=== PATIENT | female | born 1995 | race American Indian/Alaskan Native ===

== ENCOUNTER 2021-12-25 21:03 | Outpatient (CLI) | payer OTHER, MEDICAID ==
[2021-12-25 22:40] VITALS: BP 96/52
[2021-12-25 22:40] LABS: Bacteria,Urine 1+ /HPF (Negative); Bilirubin,Urine NEG (Negative); Blood,Urine NEG (Negative); Color,Urine Yellow (Yellow); Mucus,Urine FEW /HPF; Protein,Urine <15 mg/dL mg/dL (Negative); Urobilinogen,Urine < 2.0 mg/dL (<2.0); WBC,Urine < 1.0 /HPF (0.0-6.0)
[2021-12-25 22:42] LABS: RBC,Urine < 1.0 /HPF (0.0-6.0)
== END 2021-12-25 23:01 | disposition home or self-care (01) ==
LOC: TRG 21:03 → APU 21:04 → TRG 23:01
PROVIDERS: ATTEND Obstetrics & Gynecology
DX: O36.8130 Decreased fetal movements, third trimester, not applicable or unspecified (principal); Z3A.29 29 weeks gestation of pregnancy
CPT/HCPCS: 81001

== ENCOUNTER 2022-03-03 14:11 | Outpatient (CLI) | payer OTHER, MEDICAID ==
[2022-03-03 17:24] LABS: Hematocrit 37.1 % (30.3-42.9); Hemoglobin 11.8 gm/dl (10.1-14.3); Mean Corpuscular HGB Conc 32 % (30-34); Mean Corpuscular Volume 78 fl (79-97); Platelet Count 285 K/mm3 (140-440); Red Blood Count 4.77 M/mm3 (3.65-5.03); Red Cell Distribution Width 17.3 % (13.2-15.2)
[2022-03-03 17:34] LABS: Mucus,Urine FEW /HPF; RBC,Urine < 1.0 /HPF (0.0-6.0); WBC,Urine < 1.0 /HPF (0.0-6.0)
[2022-03-03 17:37] LABS: Color,Urine Straw (Yellow); Creatinine,Urine 158.3 mg/dL (0.1-20.0); Protein/Creatinine Ratio,Urine 0.16
[2022-03-03 17:38] LABS: Bilirubin,Urine Negative (Negative); Blood,Urine Negative (Negative); Urobilinogen,Urine < 2.0 mg/dL (<2.0)
[2022-03-03 17:42] LABS: Uric Acid 5.1 mg/dL (3.5-7.6)
[2022-03-03 18:25] LABS: Alanine Aminotransferase < 5 units/L (7-56)
[2022-03-03 19:51] VITALS: BP 108/66
== END 2022-03-03 20:03 | disposition home or self-care (01) ==
LOC: TRG 14:11 → APU 14:17 → TRG 20:03
PROVIDERS: ATTEND Obstetrics & Gynecology
DX: O13.3 Gestational [pregnancy-induced] hypertension without significant proteinuria, third trimester (principal); Z3A.39 39 weeks gestation of pregnancy
CPT/HCPCS: 36415; 81001; 82565; 82570; 83615; 84156; 84450; 84460; 84550; 85027

== ENCOUNTER 2022-03-05 05:31 | Outpatient (CLI) | payer OTHER, MEDICAID ==
[2022-03-05] MEDS ORDERED: LACTATED RINGERS 1,000 ML ONE (06:20)
[2022-03-05 06:36] VITALS: BP 134/85
--- NOTE | 2022-03-05 09:25 | Ultrasound Report ---
ULTRASOUND OBSTETRIC LIMITED INDICATION / CLINICAL INFORMATION: presentation. TECHNIQUE: Transabdominal ultrasound imaging. COMPARISON: None available. FINDINGS: HEART RATE (beats per minute): 149 AMNIOTIC FLUID INDEX (cm) = not measured PRESENTATION: Cephalic. ADDITIONAL FINDINGS: None. IMPRESSION: Cephalic presentation Signer Name: Todd Gilmore Jr, MD Signed: 03/05/2022 9:21 AM Workstation Name: [id number]
== END 2022-03-05 09:38 | disposition home or self-care (01) ==
LOC: TRG 05:31 → APU 05:38 → TRG 09:38
PROVIDERS: ATTEND Obstetrics & Gynecology
DX: O62.9 Abnormality of forces of labor, unspecified (principal); O24.419 Gestational diabetes mellitus in pregnancy, unspecified control; Z3A.39 39 weeks gestation of pregnancy
CPT/HCPCS: 59025; 76815; Q0177; 96360

== ENCOUNTER 2022-03-06 03:57 | Inpatient (IN) | payer OTHER, MEDICAID ==
[2022-03-06] MEDS ORDERED: LACTATED RINGERS 1,000 ML ONE ×2 (06:00→15:48)
--- NOTE | 2022-03-06 06:07 | History and Physical Report ---
History of Present Illness Date of examination: 03/06/22 History of present illness: This patient presents to labor and delivery with complaints of leaking fluid and contractions. Patient's care has been complicated by morbid obesity, abnormal 1hour glucose tolerance test with failure to follow-up for definitive testing and a history of thyroid disease. Patient was scheduled for labor induction due to gestational diabetes today per perinatology recommendation. Initial evaluation by triage nurse did reveal a positive ROM test but nurse states with multiple nurses attempting been unable to feel the patient's cervix but the fetus not been engaged in the patient's pelvis. Patient been admitted for gestational diabetes, premature rupture membranes and possibly advance labor. OB Intake Ethnicity: Tenriism: NONE Occupation: Unemployed Menstrual History Regularity: regular Menses every: 28 days Duration: 7 EDC Confirmation: 03/06/2022 Past History : 2 Term Births: 0 Premature Births: 0 Living Children: 0 Para: 0 Mult. Births: 0 Prev : 0 Prev. attempt? 0 Aborta: 1 Elect. Ab: 1 Spont. 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 % Alcohol Use: no Drug Use: no Past Medical History Anesthesia Complications: negative Anemia: negative Autoimmune Disorder: negative Bleeding Disorder: negative Blood Transfusions: negative Breast Disease: negative Diabetes: negative Heart Disease: negative Hypertension: negative Hepatitis/Liver Disease: negative Kidney Disease/UTI: negative Neurologic/Epilepsy/Migraines: negative Phlebitis/Varicosities: negative Psychiatric: negative Pulmonary Disease/Asthma: negative Thyroid Disease: negative Hospitalizations: negative Surgery (Non-publicity manager): negative Abnormal PAP: negative FELIX Exposure: negative Infertility: negative Uterine Anomaly: negative Uterine Surgery (not C/S): negative Other Gynecologic Problems: negative Family Hx: adopted Social Hx: Patient is single Smoking History: Patient has never smoked. Infection History Hx of STD: none HIV Risk Eval: no Hepatitis B Risk Eval: low risk Personal hx. of genital herpes: no Rash, Viral, or Febrile illness since last LMP? yes Varicella/Chicken Pox Status: Immunized TB Risk: no Genetic History Congenital Heart Defect: Mom: no Dad: no Sweta Disease: Mom: no Dad: no Thalassemia Mom: no Dad: no Neural Tube Defect Mom: no Dad: no Down's Syndrome Mom: no Dad: no Danilo-Sachs Mom: no Dad: no Sickle Cell Disease/Trait Mom: no Dad: no Hemophilia Mom: no Dad: no Muscular Dystrophy Mom: no Dad: no Cystic Fibrosis Mom: no Dad: no Sauk Chorea Mom: no Dad: no Mental Retardation Mom: no Dad: no Fragile X Mom: no Dad: no Other Genetic/Chromosomal Disorder Mom: no Dad: no Child w/other defect Mom: no Dad: no Enviromental Exposures Enviromental Exposures Reviewed Xray Exposure: no Medication, drug, or alcohol use since LMP: no Chemical/Other Exposure: no Exposure to Cat Liter: no Hx of Parvovirus (Fifth Disease): no Occupational Exposure to Children: none Comments: unemployed Current Allergies (reviewed today): No known allergies Past History Past Medical History: other (See HPI) Past Surgical History: other (See HPI) 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) Family/Genetic History: other (See HPI) Social history: , full code, other (See HPI) - Obstetrical History Expected Date of Delivery: 03/06/22 Actual Gestation: 40 Week(s) 0 Day(s) : 2 Para: 0 Hx # Term Pregnancies: 0 Number of Pregnancies: 0 Spontaneous Abortions: 0 Induced : 1 Number of Living Children: 0 Medications and Allergies Allergies Allergy/AdvReac Type Severity Reaction Status Date / Time No Known Allergies Allergy Verified 03/05/22 06:21 Review of Systems All systems: negative (See HPI) - Vital Signs Vital signs: Vital Signs Temp 98.1 F 03/06/22 04:10 Temp Pulse Resp BP Pulse Ox 98.1 F 88 119/71 99 03/06/22 04:10 03/06/22 06:02 03/06/22 05:59 03/06/22 06:02 - Physical Exam Breasts: Positive: deferred Cardiovascular: Regular rate Lungs: Positive: Normal air movement Abdomen: Positive: normal appearance - Obstetrical FHR: category 1 Uterine Contraction Monitor Mode: External Uterine Contraction Pattern: Irregular Uterine Tone Measurement Phase: Resting Uterine Contraction Intensity: Moderate Results Result Diagrams: 03/06/22 05:50 Abnormal lab results 03/06/22 Range/Units 04:32 Membranes Rupture Positive A (Negative) All other labs normal. Assessment and Plan - Patient Problems (1) Premature rupture of membranes Current Visit: Yes Status: Acute Qualifiers: PROM onset of labor timing: onset of labor within 24 hours of rupture PROM gestational age: full term Qualified Code(s): O42.02 - Full-term premature rupture of membranes, onset of labor within 24 hours of rupture Plan to address problem: Patient will be admitted and examined by provider. Will follow normal labor and delivery protocol with the possibility either induction of labor or augmentation of labor if indicated. (2) 40 weeks gestation of Current Visit: Yes Status: Acute (3) BMI 40.0-44.9, adult Current Visit: Yes Status: Acute (4) Carrier of group B Streptococcus Current Visit: Yes Status: Acute Plan to address problem: We will give prophylactic antibiotics (5) Gestational diabetes Current Visit: Yes Status: Acute Qualifiers: Gestational diabetes mellitus control: diet-controlled Trimester: third trimester Qualified Code(s): O24.410 - Gestational diabetes mellitus in , diet controlled
[2022-03-06] MEDS ORDERED: CARBOPROST TROMETHAMINE 250 MCG/1 ML INJ IM PRN (06:13)
[2022-03-06] MEDS ORDERED: miSOPROStol 200 MCG TAB PR PRN (06:13)
[2022-03-06] MEDS ORDERED: METHYLERGONOVINE MALEATE 0.2 MG/ML VIAL IM PRN (06:13)
[2022-03-06] MEDS ORDERED: PROMETHAZINE 25 MG TAB PO PRN (06:13)
[2022-03-06] MEDS ORDERED: ACETAMINOPHEN 325 MG TAB PO PRN (06:13)
[2022-03-06] MEDS ORDERED: OXYTOCIN 10 UNIT/1 ML INJ IM PRN (06:13)
[2022-03-06] MEDS ORDERED: TERBUTALINE 1 MG/1 ML INJ SUB-Q PRN (06:13)
[2022-03-06] MEDS ORDERED: LOPERAMIDE 2 MG CAP PO PRN (06:13)
[2022-03-06] MEDS ORDERED: ePHEDrine SULFATE 50 MG/1 ML INJ IV PRN ×2 (06:13→07:30)
[2022-03-06] MEDS ORDERED: AMPICILLIN/NS 2 GM/100 ML 2 GM/100 ML BAG IV ONE (06:13)
[2022-03-06] MEDS ORDERED: BUTORPHANOL 2 MG/1 ML INJ IV PRN ×2 (06:13)
[2022-03-06] MEDS ORDERED: LIDOCAINE (2%) 20 MG/1 ML VIAL 20 ML MDV INFILTRATI ONE (06:13)
[2022-03-06] MEDS ORDERED: LACTATED RINGERS 1,000 ML IV SCH ×2 (06:15→13:15)
[2022-03-06 06:34] LABS: Hematocrit 37.1 % (30.3-42.9); Hemoglobin 11.7 gm/dl (10.1-14.3); Mean Corpuscular HGB Conc 32 % (30-34); Mean Corpuscular Volume 78 fl (79-97); Platelet Count 271 K/mm3 (140-440); Red Blood Count 4.75 M/mm3 (3.65-5.03); Red Cell Distribution Width 16.6 % (13.2-15.2)
[2022-03-06] MEDS ORDERED: OXYTOCIN DRIP 30 UNITS/500 ML BAG IV SCH ×3 (07:00→18:46)
--- NOTE | 2022-03-06 07:19 | Anesthesia Consultation ---
Anesthesia Consult and Med Hx Date of service: 03/06/22 - Airway Anesthetic Teeth Evaluation: Good ROM Head & Neck: Adequate Mental/Hyoid Distance: Adequate Mallampati Class: Class II Intubation Access Assessment: Probably Good - Pulmonary Exam CTA: Yes - Cardiac Exam Cardiac Exam: RRR - Pre-Operative Health Status ASA Pre-Surgery Classification: ASA2 Proposed Anesthetic Plan: Epidural - Pulmonary Hx Smoking: No Hx Asthma: No COPD: No Hx Sleep Apnea: No - Cardiovascular System Hx Hypertension: No Hx Coronary Artery Disease: No - Central Nervous System Hx Seizures: No CVA: No Hx Psychiatric Problems: No - Endocrine Hx Renal Disease: No Hx Liver Disease: No Hx Non-Insulin Dependent Diabetes: No Hx Hypothyroidism: No Hx Hyperthyroidism: Yes (No medications) - Hematic Hx Anemia: No Hx Sickle Cell Disease: No - Other Systems Hx Alcohol Use: No Hx Substance Use: No Hx Cancer: No Hx Obesity: Yes - Additional Comments Anesthesia Medical History Comments: no hx of anesthetic complications
--- NOTE | 2022-03-06 07:29 | Progress Note ---
Labor Epidural - Labor Epidural Start Time: 07:13 Stop Time: 07:25 Performed by:: CANDACE HODGES (with Mireille ARCE) Procedure: Patient is requesting epidural for labor pain. H&P and labs reviewed. Procedure explained, questions answered, consent obtained. Patient placed in sitting position with monitors applied. Timeout performed immediately before start of procedure. Prep/drape in usual sterile fashion. Skin localized 3 mL 1% lidocaine at L[3]-L[4] interspace. 17-gauge Touhy epidural needle advanced to [place] with saline at [8] cm. No blood/CSF noted via epidural needle [id number]. Epidural catheter advanced to [14] cm. Negative aspiration for blood and CSF via catheter, negative response to test dose 3 ml 1.5% lidocaine w/ Epi. Sterile dressing applied followed by tape reinforcement. Patient tolerated procedure well. No immediate complications noted.
[2022-03-06] MEDS ORDERED: NALOXONE 0.4 MG/1 ML INJ IV PRN ×2 (07:30→18:46)
--- NOTE | 2022-03-06 07:51 | Progress Note ---
Assessment and Plan 26y/o @ 40+0, presented in labor. complications uncontrolled GDM and hypothyroidism. SVE /-2 after epidural, forebag noted bulging - arom'd with ISE placement moderate mec. ISE placed d/t difficulty in tracing FHT. EFW ~8lbs+ by tavares. GBS +. Dr. Terry aware of patient's assessment - Patient Problems (1) 40 weeks gestation of Current Visit: Yes Status: Acute (2) BMI 40.0-44.9, adult Current Visit: Yes Status: Acute (3) Carrier of group B Streptococcus Current Visit: Yes Status: Acute (4) Gestational diabetes Current Visit: Yes Status: Acute Qualifiers: Gestational diabetes mellitus control: diet-controlled Trimester: third trimester Qualified Code(s): O24.410 - Gestational diabetes mellitus in , diet controlled Subjective - Subjective Date of service: 03/06/22 Principal diagnosis: IUP @ 40w0d: Labor, GDM, Hypothyroidism Patient reports: other (comfrotable s/p epidural) Objective - Vital Signs Vital Signs: Vital Signs - 12hr 03/06/22 03/06/22 03/06/22 04:10 04:14 05:59 Temperature 98.1 F Pulse Rate 99 H 92 H Respiratory Rate Blood Pressure 118/65 119/71 Blood Pressure [Right] O2 Sat by Pulse Oximetry O2 Sat by Pulse Oximetry [ Anterior Bilateral Throughout] 03/06/22 03/06/22 03/06/22 06:02 06:07 06:08 Temperature 98 F Pulse Rate 88 89 Respiratory 18 Rate Blood Pressure Blood Pressure 119/71 [Right] O2 Sat by Pulse 99 99 Oximetry O2 Sat by Pulse 99 Oximetry [ Anterior Bilateral Throughout] 03/06/22 03/06/22 03/06/22 06:12 06:17 06:22 Temperature Pulse Rate 111 H 80 95 H Respiratory Rate Blood Pressure Blood Pressure [Right] O2 Sat by Pulse 99 99 100 Oximetry O2 Sat by Pulse Oximetry [ Anterior Bilateral Throughout] 03/06/22 03/06/22 03/06/22 06:27 06:32 06:37 Temperature Pulse Rate 107 H 72 114 H Respiratory Rate Blood Pressure Blood Pressure [Right] O2 Sat by Pulse 99 97 99 Oximetry O2 Sat by Pulse Oximetry [ Anterior Bilateral Throughout] 03/06/22 03/06/2222 06:42 06:47 06:52 Temperature Pulse Rate 94 H 76 80 Respiratory Rate Blood Pressure Blood Pressure [Right] O2 Sat by Pulse 99 98 97 Oximetry O2 Sat by Pulse Oximetry [ Anterior Bilateral Throughout] 03/06/22 03/06/22 03/06/22 06:57 07:02 07:05 Temperature Pulse Rate 81 120 H 107 H Respiratory Rate Blood Pressure Blood Pressure [Right] O2 Sat by Pulse 99 100 93 Oximetry O2 Sat by Pulse Oximetry [ Anterior Bilateral Throughout] 03/06/22 03/06/22 03/06/22 07:07 07:12 07:17 Temperature Pulse Rate 97 H 114 H 101 H Respiratory Rate Blood Pressure Blood Pressure [Right] O2 Sat by Pulse 99 98 100 Oximetry O2 Sat by Pulse Oximetry [ Anterior Bilateral Throughout] 03/06/22 03/06/22 03/06/22 07:22 07:27 07:32 Temperature Pulse Rate 105 H 109 H 101 H Respiratory Rate Blood Pressure 117/69 Blood Pressure [Right] O2 Sat by Pulse 99 99 100 Oximetry O2 Sat by Pulse Oximetry [ Anterior Bilateral Throughout] 03/06/22 03/06/22 03/06/22 07:33 07:37 07:39 Temperature Pulse Rate 106 H 102 H 94 H Respiratory Rate Blood Pressure 121/75 108/70 Blood Pressure [Right] O2 Sat by Pulse 99 Oximetry O2 Sat by Pulse Oximetry [ Anterior Bilateral Throughout] 03/06/22 03/06/22 03/06/22 07:42 07:43 07:47 Temperature Pulse Rate 109 H 95 H 100 H Respiratory Rate Blood Pressure 121/59 Blood Pressure [Right] O2 Sat by Pulse 98 99 Oximetry O2 Sat by Pulse Oximetry [ Anterior Bilateral Throughout] - Exam Breasts: normal Cardiovascular: Regular rate Lungs: Normal air movement Abdomen: Present: normal appearance, soft Vulva: both: normal Uterus: Present: normal, fundal height above umbilicus FHR: auscultation normal, category 1 Uterine Contraction Monitor Mode: External Cervical Dilatation: 8 (AROM forebag Moderate mec) Cervical Effacement Percentage: 90 station: -2 Uterine Contraction Frequency (min): 3-5 Uterine Contraction Duration: 80 Uterine Contraction Pattern: Regular Uterine Tone Measurement Phase: Contraction Uterine Contraction Intensity: Strong/Firm Extremities: edema Deep Tendon Reflex Grade: Normal +2 - Labs Labs: Abnormal Labs 03/06/22 03/06/22 03/06/22 04:32 05:50 06:44 MCV 78 L MCH 25 L RDW 16.6 H POC Glucose 114 H Membranes Rupture Positive A Laboratory Results - last 24 hr 03/06/22 03/06/22 03/06/22 04:32 05:50 05:50 WBC 10.0 RBC 4.75 Hgb 11.7 Hct 37.1 MCV 78 L MCH 25 L MCHC 32 RDW 16.6 H Plt Count 271 POC Glucose Membranes Rupture Positive A Antibody Screen Negative 03/06/22 06:44 WBC RBC Hgb Hct MCV MCH MCHC RDW Plt Count POC Glucose 114 H Membranes Rupture Antibody Screen
[2022-03-06] MEDS ORDERED: fentaNYL-BUPIV 2 MCG/ML-0.125% 200 MCG/100 ML BAG EPIDURAL SCH (08:00)
[2022-03-06] MEDS ORDERED: AMPICILLIN/NS 1 GM/50 ML 1 GM/50 ML BAG IV SCH (10:45)
--- NOTE | 2022-03-06 12:54 | Progress Note ---
Assessment and Plan Ctx frequent and palpate strong, no change in dilation or station. FHT with early decels indicative of CPD. Dr. Terry made aware, c/s called. Pt and s/o agree with plan. - Patient Problems (1) 40 weeks gestation of Current Visit: Yes Status: Acute (2) BMI 40.0-44.9, adult Current Visit: Yes Status: Acute (3) Carrier of group B Streptococcus Current Visit: Yes Status: Acute (4) Gestational diabetes Current Visit: Yes Status: Acute Qualifiers: Gestational diabetes mellitus control: diet-controlled Trimester: third trimester Qualified Code(s): O24.410 - Gestational diabetes mellitus in , diet controlled Subjective - Subjective Date of service: 03/06/22 Principal diagnosis: IUP @ 40w0d: Labor, GDM, Hypothyroidism Patient reports: other (comfrotable s/p epidural) Objective - Vital Signs Vital Signs: Vital Signs - 12hr 03/06/22 03/06/22 03/06/22 04:10 04:14 05:59 Temperature 98.1 F Pulse Rate 99 H 92 H Respiratory Rate Blood Pressure 118/65 119/71 Blood Pressure [Right] O2 Sat by Pulse Oximetry O2 Sat by Pulse Oximetry [ Anterior Bilateral Throughout] 03/06/22 03/06/22 03/06/22 06:02 06:07 06:08 Temperature 98 F Pulse Rate 88 89 Respiratory 18 Rate Blood Pressure Blood Pressure 119/71 [Right] O2 Sat by Pulse 99 99 Oximetry O2 Sat by Pulse 99 Oximetry [ Anterior Bilateral Throughout] 03/06/22 03/06/22 03/06/22 06:12 06:17 06:22 Temperature Pulse Rate 111 H 80 95 H Respiratory Rate Blood Pressure Blood Pressure [Right] O2 Sat by Pulse 99 99 100 Oximetry O2 Sat by Pulse Oximetry [ Anterior Bilateral Throughout] 03/06/22 03/06/22 03/06/22 06:27 06:32 06:37 Temperature Pulse Rate 107 H 72 114 H Respiratory Rate Blood Pressure Blood Pressure [Right] O2 Sat by Pulse 99 97 99 Oximetry O2 Sat by Pulse Oximetry [ Anterior Bilateral Throughout] 03/06/22 03/06/22 03/06/22 06:42 06:47 06:52 Temperature Pulse Rate 94 H 76 80 Respiratory Rate Blood Pressure Blood Pressure [Right] O2 Sat by Pulse 99 98 97 Oximetry O2 Sat by Pulse Oximetry [ Anterior Bilateral Throughout] 03/06/22 03/06/22 03/06/22 06:57 07:02 07:05 Temperature Pulse Rate 81 120 H 107 H Respiratory Rate Blood Pressure Blood Pressure [Right] O2 Sat by Pulse 99 100 93 Oximetry O2 Sat by Pulse Oximetry [ Anterior Bilateral Throughout] 03/06/22 03/06/22 03/06/22 07:07 07:12 07:17 Temperature Pulse Rate 97 H 114 H 101 H Respiratory Rate Blood Pressure Blood Pressure [Right] O2 Sat by Pulse 99 98 100 Oximetry O2 Sat by Pulse Oximetry [ Anterior Bilateral Throughout] 03/06/22 03/06/22 03/06/22 07:22 07:27 07:32 Temperature Pulse Rate 105 H 109 H 101 H Respiratory Rate Blood Pressure 117/69 Blood Pressure [Right] O2 Sat by Pulse 99 99 100 Oximetry O2 Sat by Pulse Oximetry [ Anterior Bilateral Throughout] 03/06/22 03/06/22 03/06/22 07:33 07:37 07:39 Temperature Pulse Rate 106 H 102 H 94 H Respiratory Rate Blood Pressure 121/75 108/70 Blood Pressure [Right] O2 Sat by Pulse 99 Oximetry O2 Sat by Pulse Oximetry [ Anterior Bilateral Throughout] 03/06/22 03/06/22 03/06/22 07:42 07:43 07:47 Temperature Pulse Rate 109 H 95 H 100 H Respiratory Rate Blood Pressure 121/59 Blood Pressure [Right] O2 Sat by Pulse 98 99 Oximetry O2 Sat by Pulse Oximetry [ Anterior Bilateral Throughout] 03/06/22 03/06/22 03/06/22 07:48 07:52 07:53 Temperature Pulse Rate 93 H 111 H 111 H Respiratory Rate Blood Pressure 107/60 113/70 Blood Pressure [Right] O2 Sat by Pulse 99 Oximetry O2 Sat by Pulse Oximetry [ Anterior Bilateral Throughout] 03/06/22 03/06/22 03/06/22 07:57 07:58 08:02 Temperature Pulse Rate 94 H 90 114 H Respiratory Rate Blood Pressure 111/63 Blood Pressure [Right] O2 Sat by Pulse 99 98 Oximetry O2 Sat by Pulse Oximetry [ Anterior Bilateral Throughout] 03/06/22 03/06/22 03/06/22 08:03 08:05 08:07 Temperature 98 F Pulse Rate 110 H 90 Respiratory Rate Blood Pressure 125/68 Blood Pressure [Right] O2 Sat by Pulse 98 Oximetry O2 Sat by Pulse Oximetry [ Anterior Bilateral Throughout] 03/06/22 03/06/22 03/06/22 08:08 08:12 08:14 Temperature Pulse Rate 87 99 H 91 H Respiratory Rate Blood Pressure 111/59 111/67 Blood Pressure [Right] O2 Sat by Pulse 100 Oximetry O2 Sat by Pulse Oximetry [ Anterior Bilateral Throughout] 03/06/22 03/06/22 03/06/22 08:17 08:18 08:22 Temperature Pulse Rate 103 H 107 H 90 Respiratory Rate Blood Pressure 119/69 Blood Pressure [Right] O2 Sat by Pulse 100 98 Oximetry O2 Sat by Pulse Oximetry [ Anterior Bilateral Throughout] 03/06/22 03/06/22 03/06/22 08:25 08:27 08:29 Temperature Pulse Rate 98 H 93 H 93 H Respiratory Rate Blood Pressure 128/75 114/68 Blood Pressure [Right] O2 Sat by Pulse 100 Oximetry O2 Sat by Pulse Oximetry [ Anterior Bilateral Throughout] 03/06/22 03/06/22 03/06/22 08:32 08:33 08:37 Temperature Pulse Rate 89 93 H 89 Respiratory Rate Blood Pressure 121/65 Blood Pressure [Right] O2 Sat by Pulse 99 99 Oximetry O2 Sat by Pulse Oximetry [ Anterior Bilateral Throughout] 03/06/22 03/06/22 03/06/22 08:38 08:42 08:44 Temperature Pulse Rate 94 H 90 88 Respiratory Rate Blood Pressure 108/59 108/60 Blood Pressure [Right] O2 Sat by Pulse 98 Oximetry O2 Sat by Pulse Oximetry [ Anterior Bilateral Throughout] 03/06/22 03/06/22 03/06/22 08:47 08:48 08:52 Temperature Pulse Rate 91 H 87 88 Respiratory Rate Blood Pressure 107/59 Blood Pressure [Right] O2 Sat by Pulse 98 97 Oximetry O2 Sat by Pulse Oximetry [ Anterior Bilateral Throughout] 03/06/22 03/06/22 03/06/22 08:53 08:57 08:58 Temperature Pulse Rate 85 91 H 93 H Respiratory Rate Blood Pressure 106/61 105/61 Blood Pressure [Right] O2 Sat by Pulse 98 Oximetry O2 Sat by Pulse Oximetry [ Anterior Bilateral Throughout] 03/06/22 03/06/22 03/06/22 09:02 09:03 09:07 Temperature Pulse Rate 86 93 H 90 Respiratory Rate Blood Pressure 108/59 Blood Pressure [Right] O2 Sat by Pulse 98 98 Oximetry O2 Sat by Pulse Oximetry [ Anterior Bilateral Throughout] 03/06/22 03/06/22 03/06/22 09:08 09:12 09:14 Temperature Pulse Rate 95 H 86 84 Respiratory Rate Blood Pressure 108/60 104/58 Blood Pressure [Right] O2 Sat by Pulse 98 Oximetry O2 Sat by Pulse Oximetry [ Anterior Bilateral Throughout] 03/06/22 03/06/22 03/06/22 09:17 09:18 09:22 Temperature Pulse Rate 89 98 H 94 H Respiratory Rate Blood Pressure 105/61 Blood Pressure [Right] O2 Sat by Pulse 98 100 Oximetry O2 Sat by Pulse Oximetry [ Anterior Bilateral Throughout] 03/06/22 03/06/22 03/06/22 09:23 09:25 09:27 Temperature Pulse Rate 96 H 100 H 88 Respiratory Rate Blood Pressure 109/61 Blood Pressure [Right] O2 Sat by Pulse 83 L 98 Oximetry O2 Sat by Pulse Oximetry [ Anterior Bilateral Throughout] 03/06/22 03/06/22 03/06/22 09:28 09:32 09:33 Temperature Pulse Rate 86 86 89 Respiratory Rate Blood Pressure 106/57 110/59 Blood Pressure [Right] O2 Sat by Pulse 98 Oximetry O2 Sat by Pulse Oximetry [ Anterior Bilateral Throughout] 03/06/22 03/06/22 03/06/22 09:37 09:38 09:42 Temperature Pulse Rate 109 H 102 H 82 Respiratory Rate Blood Pressure 121/76 Blood Pressure [Right] O2 Sat by Pulse 99 99 Oximetry O2 Sat by Pulse Oximetry [ Anterior Bilateral Throughout] 03/06/22 03/06/22 03/06/22 09:43 09:47 09:48 Temperature Pulse Rate 82 94 H 100 H Respiratory Rate Blood Pressure 107/60 112/59 Blood Pressure [Right] O2 Sat by Pulse 98 Oximetry O2 Sat by Pulse Oximetry [ Anterior Bilateral Throughout] 03/06/22 03/06/22 03/06/22 09:52 09:53 09:57 Temperature Pulse Rate 96 H 92 H 88 Respiratory Rate Blood Pressure 113/65 Blood Pressure [Right] O2 Sat by Pulse 100 99 Oximetry O2 Sat by Pulse Oximetry [ Anterior Bilateral Throughout] 03/06/22 03/06/22 03/06/22 09:59 10:02 10:03 Temperature Pulse Rate 89 85 85 Respiratory Rate Blood Pressure 118/69 110/62 Blood Pressure [Right] O2 Sat by Pulse 98 Oximetry O2 Sat by Pulse Oximetry [ Anterior Bilateral Throughout] 03/06/22 03/06/22 03/06/22 10:07 10:09 10:12 Temperature Pulse Rate 92 H 82 79 Respiratory Rate Blood Pressure 116/66 Blood Pressure [Right] O2 Sat by Pulse 100 98 Oximetry O2 Sat by Pulse Oximetry [ Anterior Bilateral Throughout] 03/06/22 03/06/22 03/06/22 10:14 10:17 10:19 Temperature Pulse Rate 107 H 89 86 Respiratory Rate Blood Pressure 122/71 119/70 Blood Pressure [Right] O2 Sat by Pulse 98 Oximetry O2 Sat by Pulse Oximetry [ Anterior Bilateral Throughout] 03/06/22 03/06/22 03/06/22 10:22 10:23 10:27 Temperature Pulse Rate 93 H 96 H 92 H Respiratory Rate Blood Pressure 121/71 Blood Pressure [Right] O2 Sat by Pulse 100 98 Oximetry O2 Sat by Pulse Oximetry [ Anterior Bilateral Throughout] 03/06/22 03/06/22 03/06/22 10:28 10:32 10:33 Temperature Pulse Rate 83 110 H 105 H Respiratory Rate Blood Pressure 111/69 123/72 Blood Pressure [Right] O2 Sat by Pulse 99 Oximetry O2 Sat by Pulse Oximetry [ Anterior Bilateral Throughout] 03/06/22 03/06/22 03/06/22 10:37 10:40 10:42 Temperature Pulse Rate 97 H 82 77 Respiratory Rate Blood Pressure 106/61 Blood Pressure [Right] O2 Sat by Pulse 100 100 Oximetry O2 Sat by Pulse Oximetry [ Anterior Bilateral Throughout] 03/06/22 03/06/22 03/06/22 10:45 10:47 10:48 Temperature Pulse Rate 82 105 H 98 H Respiratory Rate Blood Pressure 107/58 118/69 Blood Pressure [Right] O2 Sat by Pulse 100 Oximetry O2 Sat by Pulse Oximetry [ Anterior Bilateral Throughout] 03/06/22 03/06/22 03/06/22 10:51 10:52 10:53 Temperature Pulse Rate 86 86 90 Respiratory Rate Blood Pressure 111/62 Blood Pressure [Right] O2 Sat by Pulse 93 96 Oximetry O2 Sat by Pulse Oximetry [ Anterior Bilateral Throughout] 03/06/22 03/06/22 03/06/22 10:57 11:00 11:02 Temperature Pulse Rate 100 H 100 H 85 Respiratory Rate Blood Pressure 120/60 Blood Pressure [Right] O2 Sat by Pulse 91 100 Oximetry O2 Sat by Pulse Oximetry [ Anterior Bilateral Throughout] 03/06/22 03/06/22 03/06/22 11:04 11:07 11:08 Temperature Pulse Rate 86 76 75 Respiratory Rate Blood Pressure 102/51 95/52 Blood Pressure [Right] O2 Sat by Pulse 97 Oximetry O2 Sat by Pulse Oximetry [ Anterior Bilateral Throughout] 03/06/22 03/06/22 03/06/22 11:12 11:14 11:17 Temperature Pulse Rate 77 76 78 Respiratory Rate Blood Pressure 91/54 Blood Pressure [Right] O2 Sat by Pulse 97 100 Oximetry O2 Sat by Pulse Oximetry [ Anterior Bilateral Throughout] 03/06/22 03/06/22 03/06/22 11:19 11:22 11:24 Temperature Pulse Rate 76 74 89 Respiratory Rate Blood Pressure 96/54 107/56 Blood Pressure [Right] O2 Sat by Pulse 100 Oximetry O2 Sat by Pulse Oximetry [ Anterior Bilateral Throughout] 03/06/22 03/06/22 03/06/22 11:27 11:30 11:32 Temperature Pulse Rate 89 79 92 H Respiratory Rate Blood Pressure 94/55 Blood Pressure [Right] O2 Sat by Pulse 100 99 Oximetry O2 Sat by Pulse Oximetry [ Anterior Bilateral Throughout] 03/06/22 03/06/22 03/06/22 11:33 11:37 11:39 Temperature Pulse Rate 69 78 78 Respiratory Rate Blood Pressure 97/53 106/55 Blood Pressure [Right] O2 Sat by Pulse 100 Oximetry O2 Sat by Pulse Oximetry [ Anterior Bilateral Throughout] 03/06/22 03/06/22 03/06/22 11:42 11:43 11:47 Temperature Pulse Rate 95 H 93 H 79 Respiratory Rate Blood Pressure 108/55 Blood Pressure [Right] O2 Sat by Pulse 99 98 Oximetry O2 Sat by Pulse Oximetry [ Anterior Bilateral Throughout] 03/06/22 03/06/22 03/06/22 11:48 11:52 11:53 Temperature Pulse Rate 80 91 H 86 Respiratory Rate Blood Pressure 100/58 112/59 Blood Pressure [Right] O2 Sat by Pulse 100 Oximetry O2 Sat by Pulse Oximetry [ Anterior Bilateral Throughout] 03/06/22 03/06/22 03/06/22 11:57 11:58 12:02 Temperature Pulse Rate 83 90 103 H Respiratory Rate Blood Pressure 110/67 Blood Pressure [Right] O2 Sat by Pulse 100 100 Oximetry O2 Sat by Pulse Oximetry [ Anterior Bilateral Throughout] 03/06/22 03/06/22 03/06/22 12:03 12:07 12:09 Temperature Pulse Rate 96 H 93 H 90 Respiratory Rate Blood Pressure 118/62 113/79 Blood Pressure [Right] O2 Sat by Pulse 100 Oximetry O2 Sat by Pulse Oximetry [ Anterior Bilateral Throughout] 03/06/22 03/06/22 03/06/22 12:12 12:14 12:17 Temperature Pulse Rate 93 H 81 86 Respiratory Rate Blood Pressure 131/62 Blood Pressure [Right] O2 Sat by Pulse 99 100 Oximetry O2 Sat by Pulse Oximetry [ Anterior Bilateral Throughout] 03/06/22 03/06/22 03/06/22 12:19 12:22 12:24 Temperature Pulse Rate 79 87 79 Respiratory Rate Blood Pressure 162/66 104/56 Blood Pressure [Right] O2 Sat by Pulse 100 Oximetry O2 Sat by Pulse Oximetry [ Anterior Bilateral Throughout] 03/06/22 03/06/22 03/06/22 12:27 12:29 12:32 Temperature Pulse Rate 73 100 H 78 Respiratory Rate Blood Pressure 117/79 Blood Pressure [Right] O2 Sat by Pulse 100 100 Oximetry O2 Sat by Pulse Oximetry [ Anterior Bilateral Throughout] 03/06/22 03/06/22 03/06/22 12:34 12:37 12:40 Temperature Pulse Rate 74 92 H 70 Respiratory Rate Blood Pressure 108/57 106/57 Blood Pressure [Right] O2 Sat by Pulse 100 Oximetry O2 Sat by Pulse Oximetry [ Anterior Bilateral Throughout] 03/06/22 03/06/22 03/06/22 12:42 12:44 12:47 Temperature Pulse Rate 66 74 95 H Respiratory Rate Blood Pressure 143/63 Blood Pressure [Right] O2 Sat by Pulse 100 100 Oximetry O2 Sat by Pulse Oximetry [ Anterior Bilateral Throughout] 03/06/22 12:48 Temperature Pulse Rate 104 H Respiratory Rate Blood Pressure 143/72 Blood Pressure [Right] O2 Sat by Pulse Oximetry O2 Sat by Pulse Oximetry [ Anterior Bilateral Throughout] - Exam Cardiovascular: Regular rate Lungs: Normal air movement Abdomen: Present: normal appearance, soft Vulva: both: normal Uterus: Present: normal, fundal height above umbilicus FHR: category 2 Uterine Contraction Monitor Mode: External Cervical Dilatation: 8 Cervical Effacement Percentage: 60 station: -2 Uterine Contraction Frequency (min): 2-3 Uterine Contraction Duration: 90 Uterine Contraction Pattern: Regular Uterine Tone Measurement Phase: Contraction Uterine Contraction Intensity: Strong/Firm Extremities: edema Deep Tendon Reflex Grade: Normal +2 - Labs Labs: Abnormal Labs 03/06/22 03/06/22 03/06/22 04:32 05:50 06:44 MCV 78 L MCH 25 L RDW 16.6 H POC Glucose 114 H Membranes Rupture Positive A Laboratory Results - last 24 hr 03/06/22 03/06/22 03/06/22 04:32 05:50 05:50 WBC 10.0 RBC 4.75 Hgb 11.7 Hct 37.1 MCV 78 L MCH 25 L MCHC 32 RDW 16.6 H Plt Count 271 POC Glucose Membranes Rupture Positive A SARS-CoV-2 (PCR) Blood Type O POSITIVE Antibody Screen Negative 03/06/22 03/06/22 06:44 10:43 WBC RBC Hgb Hct MCV MCH MCHC RDW Plt Count POC Glucose 114 H Membranes Rupture SARS-CoV-2 (PCR) Negative Blood Type Antibody Screen
[2022-03-06] MEDS ORDERED: METOCLOPRAMIDE 10 MG/2 ML INJ IV ONE (12:55)
[2022-03-06] MEDS ORDERED: FAMOTIDINE 20 MG/2 ML INJ IV ONE (12:55)
[2022-03-06] MEDS ORDERED: BICITRA ORAL LIQD 30ML PO ONE (12:55)
[2022-03-06] MEDS ORDERED: ceFAZolin/Water 2 GM/20 ML 2 GM/20 ML SYRINGE IV NR (13:00)
[2022-03-06] MEDS ORDERED: LIDOCAINE 2%/EPINEPHRINE 1:200,000 VIAL (20 ML) INFILTRATI ONE (14:27)
[2022-03-06] MEDS ORDERED: WATER FOR IRRIG STERILE 1,500 ML BOTTLE IR ONE (15:10)
[2022-03-06] MEDS ORDERED: SODIUM CHLORIDE 0.9% IRR 1,500 ML BOTTLE IR ONE (15:10)
[2022-03-06] MEDS ORDERED: OXYTOCIN 10 UNIT/1 ML INJ ONE (15:48)
[2022-03-06] MEDS ORDERED: PHENYLEPHRINE/NS 1,000 MCG/10 ML SYRINGE (OR USE) IV ONE (15:48)
[2022-03-06] MEDS ORDERED: dexAMETHasone 20 MG/5 ML VIAL ONE (15:48)
[2022-03-06] MEDS ORDERED: BUPIVACAINE/PF (0.5%) 5 MG/1 ML 30 ML VIAL INFILTRATI ONE (15:48)
[2022-03-06] MEDS ORDERED: ONDANSETRON 4 MG/2 ML INJ ONE (15:48)
--- NOTE | 2022-03-06 17:03 | Operative Report ---
Operative Report Operative Report: Date of Procedure: March 06, 2022 Preoperative diagnosis: IUP @40 weeks, failure to progress Postoperative diagnosis: same, s/p primary section Procedure: Low transverse section Surgeon: Mariia Terry MD Cloth Booker: SARAH Anesthesia: Spinal Complications: none QBL: 757 ml IV Fluids: 1000 ml UOP: 150 ml, clear urine at the end of procedure Indications: Failure to progress Findings: 3520 g female in left occiput posterior position cephalic presentation with Apgars 8 & 9 Amniotic fluid meconium stained Fallopian tubes normal in appearance bilaterally Ovaries normal in appearance bilaterally Procedure: The patient was taken to the operating room where epidural anesthesia was found to be adequate. 2 g Ancef was given prior to the procedure. She was then prepared and draped in the usual sterile fashion in the dorsal supine position with a leftward tilt. A Pfannenstiel skin incision was made with the scalpel and carried through to the underlying layer of fascia with the bovie. The fascia was incised in the midline and the incision extended laterally. The superior aspect of the fascial incision was then grasped with the Abimbola's clamps, elevated, and the underlying rectus muscles dissected off bluntly and with sharp dissection using curved Arndt scissors. Attention was then turned to the inferior aspect of this incision which, in a similar fashion, was grasped, tented up with the Abimbola clamps, and the rectus was dissected off bluntly and with sharp dissection. The rectus muscles were then in the midline, and the peritoneum identified and entered bluntly. The peritoneal incision was then extended superiorly and inferiorly with good visualization of the bladder. The bladder blade was then inserted and the vesicouterine peritoneum identified, grasped with the pick ups, and entered sharply with the Metzenbaum scissors. This incision was then extended laterally and the bladder flap created digitally. The bladder blade was then reinserted and the lower uterine segment incised in a transverse fashion with the scalpel. The uterine incision was then extended laterally digitally. The bladder blade was then removed and the infant was delivered via LOP position. The nose and mouth were suctioned with the bulb suction and the cord clamped and cut. The was handed off to the waiting pediatricians.The placenta was then removed; the uterus exteriorized and cleared of all clots and debris. The uterine incision was repaired with 0 vicryl in a running locked fashion to obtain excellent hemostasis. An imbrication layer was done. Uterus returned to the abdomen. Interceed placed over the incision. The rectus muscle was reapproximated with 2-0 vicryl. The fascia was reapproximated with 0 vicryl in a running fashion. Subcutaneous layer reapproximated with interrupted sutures of 0 vicryl. The skin was closed with 4-0 monocryl subcuticular stitch and the incision sealed with Dermabond.The patient tolerated the procedure well. Sponge, lap, needle counts correct X 2. The patient was taken to the recovery room in a stable condition.
--- NOTE | 2022-03-06 17:08 | Anesthesia Day of Surgery ---
Anesthesia Day of Surgery - Day of Surgery Patient Examined: Yes Patient H&P Reviewed: Yes Patient is NPO: Yes
--- NOTE | 2022-03-06 17:15 | Progress Note ---
Spinal Anesthesia Block - Spinal Anesthesia Block Start Time: 14:50 Stop Time: 15:00 Performed by:: CANDACE HODGES Procedure: Patient IDed, H&P reviewed, all questions and concerns were answered, and consent was signed. Timeout was performed at bedside. Patient in sitting position. Sterile prep and drape was performed. [3] ml of 1% lidocaine skin wheal at L[3]- L [4]. Needle introducer advanced. 24 gauge spinal needle advanced. Clear, free flowing CSF. negative blood, negative paresthesia. Spinal dose given. All needles removed. Patient tolerated procedure.
[2022-03-06] MEDS ORDERED: MORPHINE 4 MG/1 ML INJ IV PRN (18:46)
[2022-03-06] MEDS ORDERED: WITCH HAZEL/ GLYCERIN PAD TP PRN (18:46)
[2022-03-06] MEDS ORDERED: ONDANSETRON 4 MG/2 ML INJ IV PRN (18:46)
[2022-03-06] MEDS ORDERED: LANOLIN/ZINC/DIMETHICONE (LANSINOH) 7 GM TP PRN (18:46)
[2022-03-06] MEDS ORDERED: oxyCODONE /ACETAMINOPHEN 5-325MG TAB PO PRN (18:46)
[2022-03-06] MEDS: KETOROLAC 30 MG/1 ML INJ IV SCH (23:13)
[2022-03-07] MEDS ORDERED: LACTATED RINGERS 1,000 ML IV SCH (04:45)
[2022-03-07] MEDS: KETOROLAC 30 MG/1 ML INJ IV SCH ×2 (05:20→10:45)
[2022-03-07] MEDS: PRENATAL VIT27-FE FUMARATE-FOLIC ACID VIT TAB PO SCH (10:45)
--- NOTE | 2022-03-07 11:14 | Progress Note ---
Assessment and Plan A: 26 y.o. s/p primary . POD #1 - Patient Problems (1) delivery delivered Current Visit: Yes Status: Acute Plan to address problem: Continue with care. Pain medication adjusted: 2 Percocet ordered q 6 hrs. Encourage ambulation. Advance diet as tolerated. Encourage IS use. Anticipate discharge home on 03/08. Subjective - Subjective Date of service: 03/07/22 Principal diagnosis: s/p primary , POD #1 Interval history: Pt rates her pain level this AM a 02/09. Discussed adjustment of pain medication. Patient reports: appetite normal, voiding normally, pain poorly controlled [place]: doing well Objective - Vital Signs Latest vital signs: Vital Signs Temp Pulse Resp BP BP Pulse Ox Pulse Ox 03/07/22 08:05 98.6 F 98 H 20 98/54 99 03/07/22 05:52 98.7 F 96/53 03/07/22 04:46 96/53 03/07/22 00:48 98.8 F 90 18 95/52 99 03/06/22 20:22 98.0 F 100 H 18 92/57 99 03/06/22 19:45 99 03/06/22 18:10 100 03/06/22 17:45 97.5 F L 86 16 94/52 100 03/06/22 17:40 89 15 88/52 100 03/06/22 17:25 97.8 F 98 H 15 89/53 100 03/06/22 17:10 100 H 17 95/61 100 03/06/22 16:55 100 H 14 94/52 100 03/06/22 16:50 90 16 111/72 100 03/06/22 16:44 97.7 F 76 16 117/78 100 03/06/22 14:23 99 H 125/62 03/06/22 14:22 94 H 98 03/06/22 14:18 98 H 119/59 03/06/22 14:17 91 H 100 03/06/22 14:13 109 H 122/65 03/06/22 14:12 108 H 99 03/06/22 14:08 98 H 121/67 03/06/22 14:07 93 H 98 03/06/22 14:03 81 116/65 03/06/22 14:02 80 98 03/06/22 13:58 104 H 122/69 08/04/22 13:57 88 98 03/06/22 13:53 77 114/58 03/06/22 13:52 84 98 03/06/22 13:48 100 H 119/56 03/06/22 13:47 91 H 100 03/06/22 13:43 91 H 113/59 03/06/22 13:42 86 99 03/06/22 13:38 97 H 123/60 03/06/22 13:37 107 H 100 03/06/22 13:33 72 104/55 03/06/22 13:32 72 97 03/06/22 13:29 107 H 92 03/06/22 13:28 78 114/63 03/06/22 13:27 71 98 03/06/22 13:23 76 116/65 03/06/22 13:22 75 98 03/06/22 13:18 82 109/63 03/06/22 13:17 81 100 03/06/22 13:13 98.1 F 80 107/57 107/57 03/06/22 13:12 82 100 03/06/22 13:08 80 110/59 03/06/22 13:07 91 H 100 03/06/22 13:04 91 H 109/68 03/06/22 13:02 93 H 100 03/06/22 13:00 95 H 105/66 03/06/22 12:57 89 100 03/06/22 12:53 99 H 110/66 03/06/22 12:52 92 H 100 03/06/22 12:48 104 H 143/72 03/06/22 12:47 95 H 100 03/06/22 12:44 74 143/63 03/06/22 12:42 66 100 03/06/22 12:40 70 106/57 03/06/22 12:37 92 H 100 03/06/22 12:34 74 108/57 03/06/22 12:32 78 100 03/06/22 12:29 100 H 117/79 03/06/22 12:27 73 100 03/06/22 12:24 79 104/56 03/06/22 12:22 87 100 03/06/22 12:19 79 162/66 03/06/22 12:17 86 100 03/06/22 12:14 81 131/62 03/06/22 12:12 93 H 99 03/06/22 12:09 90 113/79 03/06/22 12:07 93 H 100 03/06/22 12:03 96 H 118/62 03/06/22 12:02 103 H 100 03/06/22 11:58 90 110/67 03/06/22 11:57 83 100 03/06/22 11:53 86 112/59 03/06/22 11:52 91 H 100 03/06/22 11:48 80 100/58 03/06/22 11:47 79 98 03/06/22 11:43 93 H 108/55 03/06/22 11:42 95 H 99 03/06/22 11:39 78 106/55 03/06/22 11:37 78 100 03/06/22 11:33 69 97/53 03/06/22 11:32 92 H 99 03/06/22 11:30 79 94/55 03/06/22 11:27 89 100 03/06/22 11:24 89 107/56 03/06/22 11:22 74 100 03/06/22 11:19 76 96/54 03/06/22 11:17 78 100 03/06/22 11:14 76 91/54 Intake and Output 03/06/22 03/07/22 03/07/22 22:59 06:59 14:59 Intake Total 1200 250 220 Output Total 430 700 300 Balance 770 -450 -80 Intake: IV 1200 Oral 250 220 Output: Urine 430 700 300 Indwelling Catheter 400 300 Uretheral (Candelario) 200 300 Other: Total, Intake Amount 250 220 Total, Output Amount 300 300 Estimated Blood Loss 757 - Exam Cardiovascular: Present: Regular rate Lungs: Present: Normal air movement Abdomen: Present: normal appearance, soft Uterus: Present: normal, other (Light rubra noted. ) Extremities: Present: normal Incision: Present: normal, dry, intact, other (Open to air. No s/sx of infection and no drainage noted. )
[2022-03-07] MEDS: SIMETHICONE 80 MG CHEW TAB PO PRN ×2 (13:37→21:29)
[2022-03-07] MEDS: oxyCODONE /ACETAMINOPHEN 5-325MG TAB PO PRN ×2 (13:38→18:48)
--- NOTE | 2022-03-07 20:10 | Event Note ---
Date: 03/07/22 received call from RN stating the incision is leaking, she was breast feeding when I went to assess, instrd to have RN call when she finishes breast feeding
[2022-03-07] MEDS: IBUPROFEN 800 MG TAB PO SCH (21:30)
[2022-03-08] MEDS: oxyCODONE /ACETAMINOPHEN 5-325MG TAB PO PRN ×3 (00:47→14:17)
[2022-03-08] MEDS: IBUPROFEN 800 MG TAB PO SCH ×2 (03:35→10:02)
[2022-03-08 08:45] VITALS: BP 111/73
[2022-03-08] MEDS: PRENATAL VIT27-FE FUMARATE-FOLIC ACID VIT TAB PO SCH (10:02)
--- NOTE | 2022-03-08 10:31 | Discharge Summary ---
Providers - Providers Date of Admission: 03/06/22 06:22 Date of discharge: 03/08/22 Attending physician: OBIE IZQUIERDO Primary care physician: MIKO العلي Hospitalization Reason for admission: other (iol) Delivery: Procedure: section Procedure details: see op notes Incision: normal, dry, intact complications: none [place] baby: female Hospital course: Pt admitted for IOL and had primary c/s due to failure to progress. Her post ops course has been routine and not complicated. She will be d/c home today. Condition at discharge: Good Disposition: 01 HOME / SELF CARE / HOMELESS - Discharge Diagnoses (1) delivery delivered Status: Acute (2) Gestational diabetes Status: Acute Qualifiers: Gestational diabetes mellitus control: diet-controlled Trimester: third tr Qualified Code(s): O24.410 - Gestational diabetes mellitus in , diet controlled Plan - Discharge Medications Prescriptions: Docusate Sodium [Colace] 100 mg PO BID #60 capsule Ibuprofen [Motrin 800 MG tab] 800 mg PO Q8HR #30 tablet oxyCODONE /ACETAMINOPHEN [Percocet 5/325] 1 tab PO Q6HR PRN #20 tablet PRN Reason: Pain Vit-Fe Fumar-FA [ Vitamin] 1 tab PO QDAY #30 tablet - Provider Discharge Summary Activity: no sex for 6 weeks, no heavy lifting 4 weeks, no strenuous exercise Diet: routine Instructions: routine Additional instructions: [] Smoking cessation referral if applicable(refer to patient education folder for contact #) [] Refer to [facility] Booklet Call your doctor immediately for: * Fever > 100.5 * Heavy vaginal bleeding ( >1 pad per hour) * Severe persistent headache * Shortness of breath * Reddened, hot, painful area to leg or breast * Drainage or odor from incision. * Keep incision clean and dry at all times and follow doctor's instructions regarding bathing/showering - Follow up plan Follow up: MIKO العلي MD [Primary Care Provider] - 7 Days
--- NOTE | 2022-03-08 10:31 | Progress Note ---
Assessment and Plan - Patient Problems (1) delivery delivered Current Visit: Yes Status: Acute Plan to address problem: -routien post op care -d/c home today Subjective - Subjective Date of service: 03/08/22 Principal diagnosis: s/p primary , POD #2 Interval history: Pt doing well.She does desire d/c home today. She did c/o having bleeding from here incision. Dressing c/d/i and removed. Blood was noted but no active bleeding from the incision when expressed. Pt tolerated the exam well. Patient reports: appetite normal, voiding normally, pain well controlled, ambulating normally, no dizzy ambulation, no flatus, no bowel movement, no nauseated [place]: doing well, nursing well Objective - Vital Signs Latest vital signs: Vital Signs Temp Pulse Resp BP Pulse Ox 03/08/22 08:05 97.7 F 92 H 18 111/73 98 03/08/22 01:04 98.2 F 89 20 102/54 97 03/07/22 15:53 98.6 F 96 H 20 97/53 98 03/07/22 12:05 98.4 F 93 H 20 106/65 100 Intake and Output 03/07/22 03/08/22 03/08/22 22:59 06:59 14:59 Intake Total 200 240 Output Total 375 Balance -175 240 Intake: Oral 200 240 Output: Urine 375 Void 375 Other: Total, Intake Amount 200 240 Total, Output Amount 375 # Voids Void 1 - Exam Cardiovascular: Present: Normal S1, Normal S2 Lungs: Present: Normal air movement Abdomen: Present: normal appearance, soft, normal bowel sounds. Absent: distention, tenderness, guarding Uterus: Present: normal, firm. Absent: bogginess, tenderness Extremities: Present: normal. Absent: tenderness, edema Deep Tendon Reflex Grade: Normal +2 Incision: Present: normal, dry, intact (no bleeding noted on exam today with removal of the dressing.)
== END 2022-03-08 16:52 | disposition home or self-care (01) | DRG 788 ==
LOC: TRG 03:57 → APU 03:58 → TRG 06:19 → LD 06:22 → APU 14:41 → OB 18:05
PROVIDERS: ADMIT Obstetrics & Gynecology; ATTEND Obstetrics & Gynecology
PROC: 10D00Z1 Extraction of Products of Conception, Low, Open Approach (ICD-10-PCS; principal; 2022-03-06)
DX: O24.420 Gestational diabetes mellitus in childbirth, diet controlled (principal); Z37.0 Single live birth; O42.02 Full-term premature rupture of membranes, onset of labor within 24 hours of rupture; Z20.822 Contact with and (suspected) exposure to COVID-19; O99.824 Streptococcus B carrier state complicating childbirth; Z3A.40 40 weeks gestation of pregnancy; O99.284 Endocrine, nutritional and metabolic diseases complicating childbirth; E03.9 Hypothyroidism, unspecified
CPT/HCPCS: 36415; 59025; 76815; 81001; 82565; 82570; 82947; 82962; 83615; 84112; 84156; 84450; 84460; 84550; 85027; 86850; 86900; 86901; 88307; 96360; G0378; J3490; J7121; C1765; J0290; J1100; J1885; J2370; J2405; J2590; J2765; J7120; Q0177; U0003